=== PATIENT | male | born 1980 | race Two or more races ===

== ENCOUNTER 2023-09-23 21:46 | Emergency (ER) | payer MEDICAID, OTHER ==
[~2023-09-23] VITALS: Ht 172.7 cm; Wt 72.6 kg
[2023-09-24] MEDS ORDERED: IBUPROFEN 400 MG TABLET ONE (00:07)
[2023-09-24] MEDS: IBUPROFEN 400 MG TABLET PO ONE (00:13)
[2023-09-24 00:15] VITALS: BP 148/95; TEMP 98; O2SAT 95
== END 2023-09-24 00:24 ==
LOC: ER 21:48
DX: S52.591A Other fractures of lower end of right radius, initial encounter for closed fracture (principal); F17.200 Nicotine dependence, unspecified, uncomplicated; Z59.00 Homelessness unspecified; X58.XXXA Exposure to other specified factors, initial encounter; Y93.89 Activity, other specified; Y92.89 Other specified places as the place of occurrence of the external cause; Y99.8 Other external cause status
CPT/HCPCS: 73110